=== PATIENT | male | born 1985 | race Caucasian/White ===

== ENCOUNTER 2016-10-13 16:48 | Emergency (ER) | payer OTHER ==
[2016-10-13 16:57] VITALS: BP 151/91; PULSE 96; TEMP 98; BMI 41.0
--- NOTE | 2016-10-13 18:05 | PDOC ---
History of Present Illness - General Chief Complaint: Laceration Stated Complaint: JOB INJURY Time Seen by Provider: 10/13/16 17:33 History Source: Patient Exam Limitations: No Limitations - History of Present Illness Initial Comments: 10/13/16 18:00 My Chief complaint:laceration left wrist History of present illness: Patient is a 31-year-old male with no significant medical history here today with a superficial flap-like laceration to his left medial wrist after an air conditioner that he was moving slipped hitting him on the rest. Patient denies any pain to the rest patient has full range of motion of the rest there is no bony deformity noted to the wrist. Pt. is up to date with tetanus vaccine. Occurred: reports: just prior to arrival Severity: reports: moderate (left medial wrist laceration ) Pain Location: reports: upper extremity (left medial wrist laceration ) Method of Injury: Yes: direct blow (by an air conditioner to left medial wrist) Modifying Factors: improves with: None Loss of Consciousness: no loss of consciousness Associated Symptoms (Fall): other (laceration left medial wrist ) Past History - Past Medical History Allergies/Adverse Reactions: Allergies Allergy/AdvReac Type Severity Reaction Status Date / Time No Known Allergies Allergy Verified 10/13/16 16:57 Home Medications: Ambulatory Orders NK [No Known Home Medication] 10/13/16 - Immunization History Td Vaccination: Yes Immunization Up to Date: No - Psycho/Social/Smoking Cessation Hx Anxiety: No Suicidal Ideation: No Smoking History: Never smoked Information on smoking cessation initiated: No Hx Alcohol Use: No Review of Systems - Review of Systems Able to Perform ROS?: Yes Constitutional: No: Symptoms Reported HEENTM: No: Symptoms Reported Respiratory: No: Symptoms reported Cardiac (ROS): No: Symptoms Reported ABD/GI: No: Symptoms Reported : No: Symptoms Reported Musculoskeletal: No: Symptoms Reported Integumentary: Yes: Other (left medial wrist flap laceration ) Neurological: No: Symptoms reported *Physical Exam - Vital Signs Last Vital Signs Temp Pulse Resp BP Pulse Ox 98 F 96 H 18 151/91 99 10/13/16 16:54 10/13/16 16:54 10/13/16 16:54 10/13/16 16:54 10/13/16 16:54 - Physical Exam General Appearance: Yes: Appropriately Dressed Comments:: 10/13/16 18:59 left radial pulse 4+ Extremity: positive: Normal Capillary Refill, Normal Range of Motion (left wrist ) Integumentary: positive: Other (laceration left medial wrist flap like laceration approx 3 cm x 1 cm ) Neurologic: positive: Normal Response, Respond to painful stimul (left hand/ wrist), Responsive. negative: Numbness, Sensory Deficit Procedures - Consent Consent obtained: From Patient - Laceration/Wound Repair Left Medial Distal Wrist Wound Length: 2.6 to 5.0 cm Wound Explored: clean Wound's Depth, Shape: superficial, flap Irrigated w/ Saline: Yes Betadine Prep: Yes Anesthesia: 1% Lidocaine Amount of Anesthetic (ccs): 4 Wound Repaired With: Sutures Suture Size/Type: 4:0 Number of Sutures: 6 (interrupted) Sterile Dressing Applied: Yes Splint Applied: No Medical Decision Making - Medical Decision Making 10/13/16 18:05 Patient is a 31-year-old male with no significant medical history here today with a superficial flap-like laceration to his left medial wrist after an air conditioner that he was moving slipped hitting him on the rest. Patient denies any pain to the rest patient has full range of motion of the rest there is no bony deformity noted to the wrist. Pt. is up to date with tetanus vaccine. r/o fracture left wrist laceration left medial wrist PLAN: xray wrist left negative for fracture laceration left medial wrist 6 interrupted sutures without complication 10/13/16 18:39 10/13/16 18:50 10/13/16 19:00 *DC/Admit/Observation/Transfer Diagnosis at time of Disposition: Laceration of wrist without complication Qualifiers: Encounter type: initial encounter Laterality: left Qualified Code(s): S61.512A - Laceration without foreign body of left wrist, initial encounter - Discharge Dispostion Disposition: HOME Condition at time of disposition: Stable - Patient Instructions Additional Instructions: Keep wound dry today may wash tomorrow twice daily with antibacterial soap and water pat dry and apply tiny amount of bacitracin cover with bandage except at night when sleeping let air out Return here in 10 -14 days for suture removal or sooner if any redness around wound or discharge from wound Patient voiced understanding of discharge instructions and all questions were answered
== END 2016-10-13 18:57 | disposition home or self-care (01) ==
LOC: JERFT 16:48
PROC: 0HQEXZZ Repair Left Lower Arm Skin, External Approach (ICD-10-PCS; principal; 2016-10-13)
DX: S61.512A Laceration without foreign body of left wrist, initial encounter (principal); W22.8XXA Striking against or struck by other objects, initial encounter; Y93.89 Activity, other specified; Y92.198 Other place in other specified residential institution as the place of occurrence of the external cause; Y99.0 Civilian activity done for income or pay
CPT/HCPCS: 73110-TC-LT; 99281-25

== ENCOUNTER 2016-10-28 14:55 | Emergency (ER) | payer OTHER ==
[2016-10-28 15:09] VITALS: BP 170/79; PULSE 79; TEMP 98; BMI 38.7
--- NOTE | 2016-10-28 15:40 | PDOC ---
Suture Removal/Wound Check HPI - History of Present Illness Chief Complaint: Suture/Staple Removal(Here) Stated Complaint: SUTURE REMOVAL Time Seen by Provider: 10/28/16 15:35 History Source: Yes: Patient Exam Limitations: Yes: No Limitations Treated at: [facility] - Previous ED Treatment Type of procedure performed on last visit: Yes: Laceration Repair Tetanus Immunization: Yes: Up to Date Antibiotics Prescribed: No - Onset of Previous Treatment Date of Occurence: 10/13/16 Time of Occurence: 17:00 Past History - Past Medical History Allergies/Adverse Reactions: Allergies No Known Allergies Allergy (Verified 10/28/16 15:09) Home Medications: Ambulatory Orders NK [No Known Home Medication] 10/13/16 Surgical History: Yes: No Surgical History - Immunization History Immunizations Up to Date: No Tetanus Status: Unknown - Social History Smoking Status: Never smoked Suture Removal/Wound Check PE - Physical Exam Laceration/Wound Check Symptoms: reports: None Current Severity Level: None Maximum Severity Level: Moderate Pain Localization: None Location of Laceration/Wound: left: Wrist ([address]) *Review of Systems - Review of Systems Able to Perform ROS?: Yes Constitutional: No: Symptoms Reported HEENTM: No: Symptoms Reported Respiratory: No: Symptoms reported Cardiac (ROS): No: Symptoms Reported ABD/GI: No: Symptoms Reported : No: Symptoms Reported Musculoskeletal: No: Symptoms Reported Integumentary: No: Symptoms Reported Neurological: No: Symptoms reported Medical Decision Making - Medical Decision Making 10/28/16 15:48 This is a 31yo man who presents today for suture removal. 5 simple interupted sutures in place. patient states that 1 fell out spontaneously. 6 sutures placed on 10/13. wound margins approximated. no drainage, discharge, erythema or tenderness at suture line. 5 simple interupted sutures removed without incident. *DC/Admit/Observation/Transfer Diagnosis at time of Disposition: Visit for suture removal - Discharge Dispostion Admit: No - Patient Instructions Printed Discharge Instructions: DI for Suture Removal Additional Instructions: Resume normal activities. Make appointment with your doctor within 2 weeks. Return to ER for any concerns.
== END 2016-10-28 15:50 | disposition home or self-care (01) ==
LOC: JERFT 14:55
DX: Z48.02 Encounter for removal of sutures (principal)
CPT/HCPCS: 99281-25

== ENCOUNTER 2020-08-13 13:24 | Emergency (ER) | payer OTHER ==
[2020-08-13 13:36] VITALS: BP 151/104; PULSE 102; TEMP 98.2; BMI 47.1
[2020-08-13] MEDS ORDERED: DIPHTH,PERTUSS(ACELL),TET 0.5 ML DISP.SYRIN IM ONE ×2 (14:04→14:08)
== END 2020-08-13 14:55 | disposition home or self-care (01) ==
LOC: JERFT 13:24
PROC: 0HQGXZZ Repair Left Hand Skin, External Approach (ICD-10-PCS; principal; 2020-08-13)
PROC: 3E0234Z Introduction of Serum, Toxoid and Vaccine into Muscle, Percutaneous Approach (ICD-10-PCS; 2020-08-13)
DX: S67.191A Crushing injury of left index finger, initial encounter (principal); S61.211A Laceration without foreign body of left index finger without damage to nail, initial encounter
CPT/HCPCS: 73140-TC-LT-FY; 90715; 99284-25

== ENCOUNTER 2021-10-14 10:05 | Emergency (ER) | payer OTHER ==
[2021-10-14 10:35] VITALS: BP 158/95; PULSE 99; TEMP 98.4; BMI 47.0
[2021-10-14] MEDS ORDERED: KETOROLAC TROMETHAMINE 30 MG/1 ML VIAL IM ONE (10:59)
[2021-10-14] MEDS ORDERED: KETOROLAC TROMETHAMINE 30 MG/1 ML VIAL ONE (11:25)
== END 2021-10-14 11:58 | disposition home or self-care (01) ==
LOC: JER 10:05 → JERFT 10:05
PROC: 3E0233Z Introduction of Anti-inflammatory into Muscle, Percutaneous Approach (ICD-10-PCS; principal; 2021-10-14)
DX: R07.9 Chest pain, unspecified (principal)
CPT/HCPCS: 71046-TC-FY; 71101-TC-RT-FY; 99284-25